=== PATIENT | female | born 1960 | race Caucasian/White ===

== ENCOUNTER 2017-01-11 07:57 | Outpatient (CLI) | payer OTHER ==
[~2017-01-11] VITALS: Ht 161.3 cm; Wt 63.5 kg
[~2017-01-11 07:57] MED LIST: CALCTAB29 PO; LEVO25TA5 PO; LIDOCAINE 2% INJ 100 MG/5 ML SDV (FOR ANES.) As Ordered ONE; MELO15TA4 PO; MULT1TAB10 PO; OMEP20CA3 PO; PROPOFOL 200 MG/20 ML VIAL As Ordered ONE; SYST1SOL OU
--- NOTE | 2017-01-11 09:30 | ROOR ---
Patient Name: Krista Barrera Procedure Date: 01/11/2017 9:16 AM Date of : 1960 Age: 56 Room: [facility] Gender: Female Note Status: Finalized Procedure: Upper GI endoscopy Indications: Suspected esophageal reflux Providers: Abhi Sanabria Jr, MD Referring MD: Leda Davis Requesting Provider: Medicines: Propofol per Anesthesia Complications: No immediate complications. Procedure: Pre-Anesthesia Assessment: - Prior to the procedure, a History and Physical was performed, and patient medications and allergies were reviewed. The patient is competent. The risks and benefits of the procedure and the sedation options and risks were discussed with the patient. All questions were answered and informed consent was obtained. Patient identification and proposed procedure were verified by the physician and the nurse in the pre-procedure area and in the procedure room. Mental Status Examination: alert and oriented. Airway Examination: normal oropharyngeal airway and neck mobility. Respiratory Examination: clear to auscultation. CV Examination: normal. ASA Grade Assessment: II - A patient with mild systemic disease. After reviewing the risks and benefits, the patient was deemed in satisfactory condition to undergo the procedure. The anesthesia plan was to use moderate sedation / analgesia (conscious sedation). Immediately prior to administration of medications, the patient was re-assessed for adequacy to receive sedatives. The heart rate, respiratory rate, oxygen saturations, blood pressure, adequacy of pulmonary ventilation, and response to care were monitored throughout the procedure. The physical status of the patient was re-assessed after the procedure. The Endoscope was introduced through the mouth, and advanced to the second part of duodenum. The patient tolerated the procedure well. The patient tolerated the procedure well. Findings: The upper third of the esophagus, middle third of the esophagus and lower third of the esophagus were normal. The gastroesophageal junction, cardia, gastric fundus, prepyloric region of the stomach and pylorus were normal. Diffuse mildly erythematous mucosa without bleeding was found in the gastric body and in the gastric antrum. Biopsies were taken with a cold forceps for histology. The duodenal bulb, first portion of the duodenum and second portion of the duodenum were normal. Impression: - Normal upper third of esophagus, middle third of esophagus and lower third of esophagus. - Normal gastroesophageal junction, cardia, gastric fundus, prepyloric region of the stomach and pylorus. - Erythematous mucosa in the gastric body and antrum. Biopsied. - Normal duodenal bulb, first portion of the duodenum and second portion of the duodenum. Recommendation: - Discharge patient to home (ambulatory). - Use Zantac (ranitidine) 300 mg PO daily daily. Abhi Sanabria MD Abhi Sanabria Jr, MD 01/11/2017 9:29:43 AM This report has been signed electronically. Number of Addenda: 0 Note Initiated On: 01/11/2017 9:16 AM Estimated Blood Loss: Estimated blood loss: none.
--- NOTE | 2017-01-11 09:45 | ROOR ---
Patient Name: Krista Barrera Procedure Date: 01/11/2017 9:18 AM Date of : 1960 Age: 56 Room: [facility] Gender: Female Note Status: Finalized Procedure: Colonoscopy Indications: High risk colon cancer surveillance: Personal history of colonic polyps Providers: Abhi Sanabria Jr, MD Referring MD: Leda Davis Requesting Provider: Medicines: Propofol per Anesthesia Complications: No immediate complications. Procedure: Pre-Anesthesia Assessment: - Prior to the procedure, a History and Physical was performed, and patient medications and allergies were reviewed. The patient is competent. The risks and benefits of the procedure and the sedation options and risks were discussed with the patient. All questions were answered and informed consent was obtained. Patient identification and proposed procedure were verified by the physician and the nurse in the pre-procedure area and in the procedure room. Mental Status Examination: alert and oriented. Airway Examination: normal oropharyngeal airway and neck mobility. Respiratory Examination: clear to auscultation. CV Examination: normal. ASA Grade Assessment: II - A patient with mild systemic disease. After reviewing the risks and benefits, the patient was deemed in satisfactory condition to undergo the procedure. The anesthesia plan was to use moderate sedation / analgesia (conscious sedation). Immediately prior to administration of medications, the patient was re-assessed for adequacy to receive sedatives. The heart rate, respiratory rate, oxygen saturations, blood pressure, adequacy of pulmonary ventilation, and response to care were monitored throughout the procedure. The physical status of the patient was re-assessed after the procedure. The Colonoscope was introduced through the anus and advanced to the cecum, identified by appendiceal orifice and ileocecal valve. The colonoscopy was performed without difficulty. The patient tolerated the procedure well. The quality of the bowel preparation was adequate and good. Findings: The perianal exam findings include non-thrombosed internal hemorrhoids. Multiple small and large-mouthed diverticula were found in the sigmoid colon. The rectum, recto-sigmoid colon, descending colon, transverse colon, ascending colon, cecum, appendiceal orifice and ileocecal valve appeared normal. Impression: - Non-thrombosed internal hemorrhoids found on perianal exam. - Diverticulosis in the sigmoid colon. - The rectum, recto-sigmoid colon, descending colon, transverse colon, ascending colon, cecum, appendiceal orifice and ileocecal valve are normal. - No specimens collected. Recommendation: - Discharge patient to home (ambulatory). - Repeat colonoscopy in 10 years for screening purposes. Abhi Sanabria MD Abhi Sanabria Jr, MD 01/11/2017 9:44:28 AM This report has been signed electronically. Number of Addenda: 0 Note Initiated On: 01/11/2017 9:18 AM Estimated Blood Loss: Estimated blood loss: none.
[2017-01-11 10:20] VITALS: BP 129/89
== END 2017-01-11 10:35 | disposition home or self-care (01) ==
LOC: M OPP 07:57
PROVIDERS: ATTEND Surgery
DX: Z12.11 Encounter for screening for malignant neoplasm of colon (principal); K64.8 Other hemorrhoids; K57.30 Diverticulosis of large intestine without perforation or abscess without bleeding; Z86.010 Personal history of colon polyps; K21.9 Gastro-esophageal reflux disease without esophagitis; K31.89 Other diseases of stomach and duodenum; E78.00 Pure hypercholesterolemia, unspecified; E03.9 Hypothyroidism, unspecified; M17.0 Bilateral primary osteoarthritis of knee; Z79.899 Other long term (current) drug therapy; Z87.891 Personal history of nicotine dependence

== ENCOUNTER → 2018-12-06 | Outpatient (CLI) | payer OTHER ==
[~2018-12-06] MED LIST changes: -LIDOCAINE 2% INJ 100 MG/5 ML SDV (FOR ANES.) As Ordered ONE; +MELO15TA28 PO; -MELO15TA4 PO; +OMEP1CAP73 PO; -OMEP20CA3 PO; -PROPOFOL 200 MG/20 ML VIAL As Ordered ONE
--- NOTE | 2018-12-11 14:30 | SLEEPHOME ---
DATE OF PROCEDURE: 12/06/2018 ORDERED BY: Ivone Landeros Diagnostic home sleep testing was performed due to concern for the obstructive sleep apnea syndrome in this patient with history of excessive somnolence and nonrestorative sleep. For testing, a nocturnal T3 respiratory monitoring device was used. Continuous record was made of pulse, oxygen saturation, airflow, chest and abdominal strain and body position. 9 hours and 59 minutes of data were reviewed. There were 8 hours and 15 minutes marked as time in bed. During the interval marked time in bed, there were 127 respiratory events identified of 10 seconds in duration or greater for a respiratory event index of 15.4. The events were primarily obstructive, 15 mixed and central apneas were seen. Baseline pulse rate 75 beats per minute, pulse rate ranged 42-91. Baseline saturation 92%, saturations fell to 85%. Testing was performed in both the supine and nonsupine positions. IMPRESSION: Abnormal home sleep testing with repetitive respiratory events and oxygen desaturations to 85% with a respiratory event index of 15.4 is consistent with the obstructive sleep apnea syndrome. RECOMMENDATION: The patient should be encouraged to undergo formal sleep evaluation.
== END ==
LOC: M SLEEP HO 11:50
PROVIDERS: ATTEND Nurse Practitioner Family
DX: R06.83 Snoring (principal)

== ENCOUNTER → 2019-01-01 | Outpatient (CLI) | payer OTHER ==
--- NOTE | 2019-01-03 10:13 | SLEEPCENT ---
DATE OF PROCEDURE: 01/01/2019 ORDERING PROVIDER: TAYLA Mann, copy to Dr. Deluna. INTERPRETATION: Nocturnal diagnostic nocturnal polysomnography was performed for the titration of pressure therapy in this patient with a clinical diagnosis of obstructive sleep apnea syndrome confirmed by home testing revealing a respiratory event index of 15.4. For testing a [employer] Carlie View full face mask of small size was used, 4 cm water pressure were applied to the circuit, and the lights were extinguished. 8 hours and 11 minutes of data were reviewed. There 301 minutes of sleep identified. Sleep latency was prolonged at 85 minutes. Rapid eye movement (REM) latency was prolonged at 116-minute. Sleep architecture late the study improved. There continued to be short periods of wake but there were three REM cycles. Overall sleep efficiency was 61.9%. The patient's electrocardiogram showed sinus rhythm with preventricular contractions (PVCs). Average heart rate 60 beats per minute. EEG showed normal waveforms for awake and sleep. Respiratory events were best palliated with CPAP of pressure +7. Remainder remaining measures of sleep physiology were normal. IMPRESSION: Obstructive sleep apnea syndrome (G47.33) RECOMMENDATIONS: Nightly use of pressure therapy 7 cm of water.
== END ==
LOC: M SLEEP 19:42
PROVIDERS: ATTEND Nurse Practitioner Family
DX: G47.33 Obstructive sleep apnea (adult) (pediatric) (principal)

== ENCOUNTER → 2019-09-24 | Outpatient (CLI) | payer OTHER ==
--- NOTE | 2019-09-25 01:53 | REPPI ---
Clinical: Pain. History of rheumatoid arthritis. Technique: AP, lateral, bilateral oblique views of the left wrist. Findings: Generalized age-related changes include periarticular sclerosis and minimal elements of garcia carpal joint space narrowing primarily involving the first carpometacarpal joint. There is evidence for old ulnar styloid fracture. No subchondral cystic changes, obvious chondrocalcinosis, or periarticular calcifications/loose bodies are identified. Impression: Generalized age-related changes. Electronically Signed by Gentry Hayes MD 09/25/2019 01:45 A
== END ==
LOC: M PLAIMG 10:52
PROVIDERS: ATTEND Internal Medicine
DX: M06.09 Rheumatoid arthritis without rheumatoid factor, multiple sites (principal)

== ENCOUNTER → 2023-11-08 | Outpatient (CLI) | payer MEDICARE, OTHER | LOC: M WUC 14:51 | PROVIDERS: ATTEND Internal Medicine | DX: D51.9 Vitamin B12 deficiency anemia, unspecified (principal); M25.512 Pain in left shoulder ==

== ENCOUNTER → 2023-12-06 | Day surgery (SDC) | payer MEDICARE, OTHER ==
[~2023-12-06] VITALS: Ht 160 cm; Wt 55.2 kg
[~2023-12-06] MED LIST changes: +ACET650T61 PO; +B-12100010 PO; +ETAN50SY SC; +EZET10TA21 PO; +HYDR200T46 PO; +LIDOCAINE 2% 100MG/5ML SDV (FOR ANES.) As Ordered ONE; +REFR0.5D8 OU; +VITA-243 PO; +VITA100093 PO; +propofoL 200 MG/20 ML VIAL As Ordered ONE
[2023-12-06] MEDS: NS 1,000 ML IV ONE (07:59)
[2023-12-06 09:28] VITALS: BP 114/76; TEMP 97.2; O2SAT 97
== END | disposition home or self-care (01) ==
LOC: M OPP 07:44
PROVIDERS: ATTEND Surgery
DX: Z12.11 Encounter for screening for malignant neoplasm of colon (principal); K57.30 Diverticulosis of large intestine without perforation or abscess without bleeding; G47.33 Obstructive sleep apnea (adult) (pediatric); Z99.89 Dependence on other enabling machines and devices; Z79.02 Long term (current) use of antithrombotics/antiplatelets; Z79.1 Long term (current) use of non-steroidal anti-inflammatories (NSAID); Z79.620 Long term (current) use of immunosuppressive biologic; Z79.890 Hormone replacement therapy; Z79.899 Other long term (current) drug therapy; Z88.8 Allergy status to other drugs, medicaments and biological substances

== ENCOUNTER → 2024-01-09 | Outpatient (CLI) | payer MEDICARE, OTHER ==
[~2024-01-09] MED LIST changes: -LIDOCAINE 2% 100MG/5ML SDV (FOR ANES.) As Ordered ONE; -propofoL 200 MG/20 ML VIAL As Ordered ONE
== END ==
LOC: M PLAIMG 06:38
PROVIDERS: ATTEND Orthopaedic Surgery
DX: M25.512 Pain in left shoulder (principal)

== ENCOUNTER 2024-10-13 21:22 | Day surgery (SDC) | payer MEDICARE, OTHER ==
[~2024-10-13] VITALS: Ht 160 cm; Wt 58.1 kg
[2024-10-14] MEDS: LIDOCAINE VISCOUS 2% SOLN 15 ML UDC MT ONE (02:37)
[2024-10-14] MEDS: LIDOCAINE VISCOUS 2% SOLN 15 ML UDC PO ONE (04:30)
[2024-10-14] MEDS: METOCLOPRAMIDE 5 MG TAB PO ONE (06:40)
[2024-10-14] MEDS ORDERED: ACET-1349 PO (07:49)
[2024-10-14] MEDS ORDERED: CALC500C16 PO (07:49)
[2024-10-14] MEDS ORDERED: HOME MED LIST COMPLETE! XX SCH (07:50)
[2024-10-14] MEDS: KETOROLAC 30 MG/ML 1 ML VIAL IV ONE (08:04)
[2024-10-14 08:31] LABS: BASO # 0.0 10^3/uL (0.0-0.2); BASO % 0.6 % (0.0-1.0); EOS # 0.2 10^3/uL (0.0-0.5); EOS % 2.5 % (0.0-3.0); LYMPH # 1.5 10^3/uL (1.5-5.0); LYMPH % 24.0 % (24.0-44.0); MONO # 0.6 10^3/uL (0.0-0.8); MONO % 8.9 % (2.0-8.0); NEUTROPHILS # 4.1 10^3/uL (1.5-8.5); NEUTROPHILS % 63.8 % (36.0-66.0); PLATELET COUNT, AUTOMATED 252 10^3/uL (150-450)
[2024-10-14 08:44] LABS: INR 1.02
[2024-10-14] MEDS ORDERED: LIDOCAINE 2% 100 MG/5 ML SDV (FOR ANES.) As Ordered ONE (08:47)
[2024-10-14] MEDS ORDERED: ONDANSETRON 4MG 2ML VIAL As Ordered ONE (08:47)
[2024-10-14] MEDS ORDERED: MIDAZOLAM INJ 2 MG/2 ML VIAL As Ordered ONE (08:47)
[2024-10-14] MEDS ORDERED: dexAMETHasone 4 MG/ML 1 ML VIAL As Ordered ONE (08:47)
[2024-10-14] MEDS: OXYMETAZOLINE 0.05% NASAL SPRAY As Ordered ONE (08:53)
[2024-10-14] MEDS ORDERED: SEVOFLURANE INHAL SOLN 250 ML BTL As Ordered ONE (08:58)
[2024-10-14] MEDS ORDERED: dexmedeTOMIDine (4 MCG/ML) 200 MCG/50 ML BTL As Ordered ONE (09:01)
[2024-10-14] MEDS: LR 1,000 ML IV SCH (09:01)
[2024-10-14 09:05] LABS: ALT/SGPT 17.0 U/L (7.0-40); AST/SGOT 20.0 U/L (<34); CALCIUM LEVEL 9.7 MG/DL (8.3-10.6); CARBON DIOXIDE LEVEL 30.0 MMOL/L (20-31); CHLORIDE LEVEL 103.0 MMOL/L (98-107); CREATININE FOR GFR 0.92 MG/DL (0.55-1.30); GLOMERULAR FILTRATION RATE 68.7 (>45); POTASSIUM SERUM 4.0 MMOL/L (3.5-5.1); SODIUM LEVEL 144.0 MMOL/L (136-145)
[2024-10-14 11:56] VITALS: BP 141/72; TEMP 97.1; O2SAT 100
== END 2024-10-14 12:06 | disposition home or self-care (01) ==
LOC: M ED 21:22 → M SDC 21:23
PROVIDERS: ATTEND Otolaryngology
DX: T17.228A Food in pharynx causing other injury, initial encounter (principal); R00.0 Tachycardia, unspecified; R07.0 Pain in throat; E03.9 Hypothyroidism, unspecified; G47.33 Obstructive sleep apnea (adult) (pediatric); M19.90 Unspecified osteoarthritis, unspecified site; Z88.8 Allergy status to other drugs, medicaments and biological substances; Z79.899 Other long term (current) drug therapy; Z79.890 Hormone replacement therapy
CPT/HCPCS: 31531; 31575; 70360; 70490; 71250; 80053; 85025; 85610; 85730; 86850; 86900; 86901; 99285; J1100; J1885; J2250; J2405; J3010

== ENCOUNTER → 2024-10-29 | Outpatient (CLI) | payer MEDICARE, OTHER ==
[~2024-10-29] MED LIST changes: +ACET-1349 PO; +CALC500C16 PO
== END ==
LOC: M WUC 12:58
PROVIDERS: ATTEND Physician Assistant
DX: M79.674 Pain in right toe(s) (principal)

== ENCOUNTER → 2025-02-05 | Outpatient (CLI) | payer MEDICARE, OTHER ==
[~2025-02-05] MED LIST changes: -EZET10TA21 PO; +EZET10TA57 PO
== END ==
LOC: M RAD 12:04
PROVIDERS: ATTEND Internal Medicine
DX: R10.20 Pelvic and perineal pain unspecified side (principal); Z90.710 Acquired absence of both cervix and uterus